=== PATIENT | male | born 1985 | race American Indian/Alaskan Native ===

== ENCOUNTER 2019-12-16 20:33 | Emergency (ER) | payer SELFPAY ==
[2019-12-16 21:52] VITALS: BP 166/121
[2019-12-16] MEDS ORDERED: hydrOXYzine HCL 10 MG TAB PO ONE (22:46)
--- NOTE | 2019-12-16 22:51 | Emergency Department Report ---
ED General Adult HPI - General Chief complaint: Skin Rash Stated complaint: RASH Time Seen by Provider: 12/16/19 22:09 Source: patient, RN notes reviewed Mode of arrival: Ambulatory Limitations: No Limitations - History of Present Illness Initial comments: Patient is a 34-year-old gentleman who is not known to myself previously, presenting to the ER with a complaint of pruritic rash, on his hands, arms, chest, abdomen, pelvis and bilateral lower extremities. He denies physical pain. He denies fever, cough, urinary symptoms. He is not homicidal or suicidal. He cannot think of any obvious inciting factors for this. He makes no complaint of hallucinations or wanting to overdose. He indicates no recent cream, cologne, change in detergent, etc., obvious inciting factors -: Gradual, days(s) Location: back, abdomen, left, right, upper extremity, lower extremity Quality: other (Pruritic and itchy) Consistency: constant Improves with: other (Scratching and itching occasionally assists) Worsens with: none - Related Data Previous Rx's Medication Instructions Recorded Last Taken Type Permethrin 5% [Acticin 5% CREAM] 1 applicatio TP ONCE #2 tube 12/16/19 Unknown Rx hydrOXYzine HCL [Atarax] 10 mg PO Q6HR PRN #15 tablet 12/16/19 Unknown Rx Allergies Allergy/AdvReac Type Severity Reaction Status Date / Time No Known Allergies Allergy Verified 12/16/19 22:48 ED Review of Systems ROS: Stated complaint: RASH Other details as noted in HPI Constitutional: denies: fever Eyes: denies: eye discharge Respiratory: denies: wheezing Cardiovascular: denies: chest pain Gastrointestinal: denies: abdominal pain Genitourinary: as per HPI Musculoskeletal: denies: arthralgia, myalgia Skin: rash, lesions Psychiatric: denies: homicidal thoughts, suicidal thoughts ED Past Medical Hx - Past Medical History Previous Medical History?: Yes Hx Hypertension: Yes Hx Pulmonary Embolism: Yes (Takes Eliquis) Hx Psychiatric Treatment: Yes (depression, Schizophrenia) - Surgical History Past Surgical History?: Yes Additional Surgical History: Temporary pacemaker in his groin 2016 - Social History Smoking Status: Current Every Day Smoker Substance Use Type: Alcohol - Medications Home Medications: Home Medications Medication Instructions Recorded Confirmed Last Taken Type Permethrin 5% [Acticin 5% CREAM] 1 applicatio TP ONCE #2 tube 12/16/19 Unknown Rx hydrOXYzine HCL [Atarax] 10 mg PO Q6HR PRN #15 tablet 12/16/19 Unknown Rx ED Physical Exam - General Limitations: No Limitations General appearance: alert, anxious, obese - Head Head exam: Present: atraumatic, normocephalic - Eye Eye exam: Present: normal appearance, EOMI. Absent: nystagmus - ENT ENT exam: Present: normal exam, normal orophraynx, mucous membranes moist, normal external ear exam - Neck Neck exam: Present: normal inspection, full ROM. Absent: tenderness, meningismus - Respiratory Respiratory exam: Present: normal lung sounds bilaterally. Absent: respiratory distress, wheezes, rales, rhonchi, stridor - Cardiovascular Cardiovascular Exam: Present: normal rhythm, tachycardia, normal heart sounds, other (Heart rate now approximately 110 bpm). Absent: systolic murmur, diastolic murmur, rubs, gallop - GI/Abdominal GI/Abdominal exam: Present: soft. Absent: distended, tenderness, guarding, rebound, rigid, pulsatile mass - Rectal Rectal exam: Present: deferred - Extremities Exam Extremities exam: Present: full ROM, other (2+ pulses noted in the bilateral upper extremities. The muscular compartments are soft. There is no long bony tenderness in the upper extremities. Walking with a steady gait.) - Back Exam Back exam: Present: normal inspection, full ROM. Absent: tenderness, CVA tenderness (R), CVA tenderness (L), paraspinal tenderness, vertebral tenderness - Neurological Exam Neurological exam: Present: alert, oriented X3, normal gait, other (No facial droop. Tongue midline. Extraocular movements intact bilaterally. Facial sensation intact to light touch in V1, V2, V3 distribution bilaterally. 5 and a 5 strength in 4 extremities. Sensation intact to light touch in 4 extremities.). Absent: motor sensory deficit - Psychiatric Psychiatric exam: Present: anxious. Absent: homicidal ideation, suicidal ideation - Skin Skin exam: Present: warm, normal color, rash, other (Punctate excoriated lesions noted on the bilateral upper extremities, there is no intertrigo in this lesions, there is no pus or streaking, suggestive of arthropod bite) ED Course Vital Signs 12/16/19 21:41 Temperature 98.8 F Pulse Rate 123 H Respiratory 18 Rate Blood Pressure 166/121 O2 Sat by Pulse 91 Oximetry ED Medical Decision Making - Lab Data Vital Signs 12/16/19 21:41 Temperature 98.8 F Pulse Rate 123 H Respiratory 18 Rate Blood Pressure 166/121 O2 Sat by Pulse 91 Oximetry - Medical Decision Making Differential diagnosis, including but not limited to: Arthropod bites Assessment and plan: 34-year-old gentleman with diffuse punctate lesions, suggestive of arthropod bites, without evidence of superinfection, clinically sober, with no additional medical complaints, not homicidal, not suicidal, does not meet criteria for 1013, with improving tachycardia. He will be placed on permethrin, as needed Atarax for pruritus, he will need to wash all clothing with hot water and soap, and make certain to have his house/apartment/living situation evaluated by change lead to rule out bedbugs. Critical care attestation.: If time is entered above; I have spent that time in minutes in the direct care of this critically ill patient, excluding procedure time. ED Disposition Clinical Impression: Pruritic rash Disposition: DC-01 TO HOME OR SELFCARE Is pt being admited?: No Does the pt Need Aspirin: No Condition: Good Instructions: Insect Bite or Sting (ED) Additional Instructions: Take the medications as directed. Recommend washing all clothing with hot water and soap, and any linens, bedding, etc. should be washed with hot water and soap. Recommend having patient's home situation evaluated by an change lead to evaluate for possible bedbugs. Please follow-up with an outpatient primary care doctor within the next 2 months. Please return to the emergency room right away with new, worsened or different symptoms, or symptoms not present on the initial emergency room evaluation. Referrals: [facility] [Provider Group] - as needed [facility] [Provider Group] - as needed
== END 2019-12-16 22:59 | disposition home or self-care (01) ==
LOC: ED 20:33
DX: R21 Rash and other nonspecific skin eruption (principal); L29.9 Pruritus, unspecified; I10 Essential (primary) hypertension; F32.89 Other specified depressive episodes; F20.89 Other schizophrenia; F17.200 Nicotine dependence, unspecified, uncomplicated
CPT/HCPCS: 99282